=== PATIENT | male | born 1960 | race Caucasian/White ===

== ENCOUNTER 2018-03-19 12:03 | Inpatient (IN) | payer OTHER ==
[~2018-03-19] VITALS: Ht 160 cm; Wt 109.3 kg
[2018-03-19 12:55] LABS: CALCIUM 8.9 mg/dL (8.5-10.1); CARBON DIOXIDE 24.1 mmol/L (21-32); CHLORIDE SERUM 107 mmol/L (98-107); CREATININE SERUM 0.9 mg/dL (0.7-1.3); GFR1 > 60 mL/min; GLUCOSE SERUM 105 mg/dL (74-106); SODIUM SERUM 140 mmol/L (136-145)
[2018-03-19 13:08] LABS: ALBUMIN 3.7 g/dL (3.4-5.0); ALKALINE PHOSPHATASE 95 U/L (46-116); ALT/SGPT 6 U/L (16-63); AST/SGOT 19 U/L (15-37); BILIRUBIN TOTAL 0.79 mg/dL (0.20-1.00); FREE T4 1.09 ng/dL (0.76-1.46)
[2018-03-19 14:13] LABS: BASOPHIL % 0.3 % (0-2); PLATELET COUNT 111 x10^3mcL (130-400); RED CELL DISTRIBUTION WIDTH 14.8 % (11.5-14.5)
[2018-03-19 14:38] LABS: microscopic required? NO
[2018-03-19 14:59] LABS: UA SPECIFIC GRAVITY 1.025 (1.005-1.035); urine erythrocyte NEGATIVE (NEGATIVE)
[2018-03-19 15:11] LABS: AMPHETAMINE QUAL UR NONE DETECTED (See below)
[2018-03-19] MEDS ORDERED: PRILOSEC OTC20 M1 PO (15:53)
[2018-03-19] MEDS ORDERED: LASIX40 MG PO (15:53)
[2018-03-19] MEDS ORDERED: [UNRECOGNIZED DRUG - OTHER] (15:53)
[2018-03-19] MEDS ORDERED: SPIRONOLACTONE100 MG PO (15:53)
[2018-03-19 16:41] VITALS: BP 124/86
[2018-03-19 16:45] LABS: MAGNESIUM 1.8 mg/dL (1.8-2.4)
[2018-03-19 16:46] LABS: CHOLESTEROL/HDL RATIO 3.1
[2018-03-19 20:02] VITALS: BP 115/89
[2018-03-19 23:30] VITALS: BP 108/74
[2018-03-20 03:34] VITALS: BP 115/92
[2018-03-20 04:07] LABS: BASOPHIL % 0.4 % (0-2)
[2018-03-20 04:08] LABS: PLATELET COUNT 104 x10^3mcL (130-400); RED CELL DISTRIBUTION WIDTH 15.2 % (11.5-14.5)
[2018-03-20 04:14] LABS: CALCIUM 7.6 mg/dL (8.5-10.1); CHLORIDE SERUM 109 mmol/L (98-107); CREATININE SERUM 0.8 mg/dL (0.7-1.3); GFR1 > 60 mL/min; GLUCOSE SERUM 113 mg/dL (74-106); POTASSIUM SERUM 3.9 mmol/L (3.5-5.1); SODIUM SERUM 138 mmol/L (136-145)
[2018-03-20 08:00] VITALS: BP 135/92
[2018-03-20 08:01] VITALS: Ht 160 cm; Wt 109.3 kg
[2018-03-20 12:00] VITALS: BP 108/62
[2018-03-20 16:06] VITALS: BP 110/77
[2018-03-20 18:00] VITALS: BP 110/77
[2018-03-20 20:47] VITALS: BP 94/64
[2018-03-21 05:57] VITALS: BP 90/70
[2018-03-21 09:11] VITALS: BP 103/71
[2018-03-21 13:10] VITALS: BP 101/62
[2018-03-21 17:06] VITALS: BP 105/70
[2018-03-21 21:08] VITALS: BP 95/66
[2018-03-22 06:22] VITALS: BP 102/74
[2018-03-22 06:26] LABS: BASOPHIL % 0.3 % (0-2)
[2018-03-22 06:31] LABS: CALCIUM 8.6 mg/dL (8.5-10.1); CARBON DIOXIDE 25.6 mmol/L (21-32); CHLORIDE SERUM 104 mmol/L (98-107); CREATININE SERUM 0.8 mg/dL (0.7-1.3); GFR1 > 60 mL/min; GLUCOSE SERUM 91 mg/dL (74-106); POTASSIUM SERUM 3.4 mmol/L (3.5-5.1); SODIUM SERUM 137 mmol/L (136-145)
[2018-03-22 06:34] LABS: PLATELET COUNT 86 x10^3mcL (130-400); RED CELL DISTRIBUTION WIDTH 15.2 % (11.5-14.5)
[2018-03-22 10:46] VITALS: BP 94/37
[2018-03-22 17:33] VITALS: BP 102/77
[2018-03-22 22:03] VITALS: BP 107/76
[2018-03-23 05:12] VITALS: BP 112/79
[2018-03-23 09:58] VITALS: BP 97/76
[2018-03-23 15:03] VITALS: BP 106/72
[2018-03-23 17:47] VITALS: BP 106/72
[2018-03-23 18:29] VITALS: BP 103/78
[2018-03-23 21:18] VITALS: BP 100/69
[2018-03-24 05:38] VITALS: BP 113/75
[2018-03-24 07:18] LABS: BASOPHIL % 0.4 % (0-2)
[2018-03-24 07:19] LABS: CALCIUM 8.6 mg/dL (8.5-10.1); CARBON DIOXIDE 30.6 mmol/L (21-32); CHLORIDE SERUM 101 mmol/L (98-107); CREATININE SERUM 0.9 mg/dL (0.7-1.3); GFR1 > 60 mL/min; GLUCOSE SERUM 90 mg/dL (74-106); POTASSIUM SERUM 3.6 mmol/L (3.5-5.1); SODIUM SERUM 137 mmol/L (136-145)
[2018-03-24 07:24] LABS: PLATELET COUNT 103 x10^3mcL (130-400); RED CELL DISTRIBUTION WIDTH 14.6 % (11.5-14.5)
[2018-03-24 09:55] VITALS: BP 126/84
[2018-03-24 14:14] VITALS: BP 100/72
[2018-03-24 17:33] VITALS: BP 102/75
[2018-03-24 20:45] VITALS: BP 112/74
[2018-03-25 05:30] VITALS: BP 105/64
[2018-03-25 09:56] VITALS: BP 99/79
[2018-03-25 10:33] VITALS: BP 99/79
== END 2018-03-25 15:53 | disposition short-term general hospital (02) | DRG 177 ==
LOC: ED 12:03 → DU 15:44 → IW 15:44 → IC 15:44 → IW 18:30 → IC 19:25 → MU 03-20 18:13 → DU 03-20 18:30
PROVIDERS: Emergency Medicine; Internal Medicine
PROC: 5A2204Z Restoration of Cardiac Rhythm, Single (ICD-10-PCS; principal; 2018-03-19)
PROC: 5A09357 Assistance with Respiratory Ventilation, Less than 24 Consecutive Hours, Continuous Positive Airway Pressure (ICD-10-PCS; 2018-03-19)
DX: J69.0 Pneumonitis due to inhalation of food and vomit (principal); J96.01 Acute respiratory failure with hypoxia; Z68.45 Body mass index [BMI] 70 or greater, adult; J44.1 Chronic obstructive pulmonary disease with (acute) exacerbation; I48.92 Unspecified atrial flutter; I48.91 Unspecified atrial fibrillation; F17.210 Nicotine dependence, cigarettes, uncomplicated; G47.33 Obstructive sleep apnea (adult) (pediatric); I25.10 Atherosclerotic heart disease of native coronary artery without angina pectoris; I10 Essential (primary) hypertension; J45.909 Unspecified asthma, uncomplicated; Z86.73 Personal history of transient ischemic attack (TIA), and cerebral infarction without residual deficits; E66.01 Morbid (severe) obesity due to excess calories; K76.81 Hepatopulmonary syndrome; Z88.0 Allergy status to penicillin; K74.60 Unspecified cirrhosis of liver; E87.6 Hypokalemia; Z91.19 Patient's noncompliance with other medical treatment and regimen
CPT/HCPCS: 83880; 84439; 85378; 94150; 97110-GP; 97116-GP; 97530-GP; A9500; C9113; J1644; J1956; J2270; J2785; J3475; J3490; J7030; J7040; J7626; Q0092; Q9967